=== PATIENT | female | born 1960 | race African-American/Black ===

== ENCOUNTER → 2017-09-01 | Outpatient (CLI) | payer MEDICAID ==
[~2017-09-01] MED LIST: ATORVASTATIN CA40 MG PO; CIPRO 500MG TA500 MG PO; CYCLOBENZAPRINE10 M1 PO; GABAPENTIN300 M1 PO; GLIMEPIRIDE 4MG4 MG PO; LEVOTHYROXIN0.075 M1 PO; LEVOTHYROXINE0.1 M1 PO; LISINOPRIL 20MG20 MG PO; LISINOPRIL HCTZ1 TAB PO; PROVENTIL0.09 MG/A1 IH; TESSALON PERLE100 MG PO
[2017-09-01 19:11] LABS: LYMPH # 2.7 K/mm3 (0.7-4.5); LYMPH % 34.7 % (10-50.0)
[2017-09-01 19:46] LABS: BUN 18 mg/dL (7-18)
[2017-09-01 19:55] LABS: HEMOGLOBIN 14.6 g/dL (12.2-16.2)
[2017-09-01 20:26] LABS: GFR (ESTIMATED) 58 ML/MIN (59-)
== END ==
LOC: LAB 17:31
PROVIDERS: Nurse Practitioner Family
DX: R53.83 Other fatigue (principal); E55.9 Vitamin D deficiency, unspecified; Z79.899 Other long term (current) drug therapy